=== PATIENT | female | born 1995 | race Caucasian/White ===

== ENCOUNTER 2017-07-14 07:03 | Emergency (ER) | payer OTHER ==
[2017-07-14] MEDS ORDERED: ADDERALL5 MG PO (07:09)
[2017-07-14] MEDS ORDERED: Motrin,Rufen800 MG PO (08:23)
== END 2017-07-14 09:09 | disposition home or self-care (01) ==
LOC: ED 07:03
DX: S01.81XA Laceration without foreign body of other part of head, initial encounter (principal); S16.1XXA Strain of muscle, fascia and tendon at neck level, initial encounter; V86.69XA Passenger of other special all-terrain or other off-road motor vehicle injured in nontraffic accident, initial encounter; Y93.89 Activity, other specified; Y92.89 Other specified places as the place of occurrence of the external cause; Y99.9 Unspecified external cause status